=== PATIENT | male | born 1940 | race African-American/Black ===

== ENCOUNTER 2016-09-22 22:50 | Emergency (ER) | payer MEDICARE, BC ==
[~2016-09-22] VITALS: Ht 177.8 cm; Wt 79.4 kg
[~2016-09-22 22:50] MED LIST: AMLO10TA2 PO; AMLO1TAB95 PO; ASPI81TA44 PO; ATOR20TA58 PO; CARV3.122 PO; CARV6.25 PO; CHLO25TA PO; CHOL100013 PO; CITA10TA4 PO; CITA20TA9 PO; COREG PF; DONE10TA7 PO; DUTA1CPM PO; EXEN5PEN2 SQ; KETO1DRO OP; LEVO150T5 PO; MAGN400C PO; METF10002 PO; METF500T PO; METF500T4 PO; MULT1TAB13 PO; OLME40TA PO; OMEG500C PO; Oxybutynin Chloride PO; POTA20TA12 PO; [UNRECOGNIZED DRUG - CODE] TP; [UNRECOGNIZED DRUG - REMARK]
[2016-09-22 23:26] LABS: BASO # 0.1 x10^3/uL (0.0-0.2); BASO % 1 % (0-3); EOS % 10 % (0-3); HEMATOCRIT 34.3 % (39.0-53.0); HEMOGLOBIN 11.1 g/dL (13.0-17.5); LYMPH % 15 % (24-48); MEAN CORPUSCULAR HEMOGLOBIN 29 pg (25-35); MEAN CORPUSCULAR HGB CONC 33 g/dL (31-37); MEAN CORPUSCULAR VOLUME 89 fL (79-100); MONO % 11 % (0-9); NEUT % 63 % (31-73); PLATELET COUNT 169 x10^3/uL (140-400); RED BLOOD COUNT 3.84 x10^6/uL (4.30-5.70); RED CELL DISTRIBUTION WIDTH 14.6 % (11.5-14.5); WHITE BLOOD COUNT 6.7 x10^3/uL (4.0-11.0)
[2016-09-22 23:35] LABS: CALCIUM 8.6 mg/dL (8.5-10.1); GFR 87.9; POTASSIUM 3.7 mmol/L (3.5-5.1)
[2016-09-22 23:40] LABS: ALBUMIN 3.2 g/dL (3.4-5.0); ALBUMIN/GLOBULIN RATIO 1.3 (1.0-1.7); TOTAL BILIRUBIN 0.2 mg/dL (0.2-1.0); TOTAL PROTEIN 5.7 g/dL (6.4-8.2)
--- NOTE | 2016-09-22 23:54 | PHYS DOC ---
Past Medical History Past Medical History: Anxiety, Dementia, Diabetes-Type II, High Cholesterol, Heart Disease, Hypertension, Hypothyroid, Other Additional Past Medical Histor: ENLARGED PROSTATE, ALZHEIMER'S Past Surgical History: Knee Replacement, Other Additional Past Surgical Histo: ESOPHAGEAL DILATION, UNKNOWN OTHER SX HX- PT IS POOR HISTORIAN Alcohol Use: None Drug Use: None Adult General Chief Complaint Chief Complaint: HICCUPS/SINGULTUS HPI HPI Patient is a 76 year old male who presents with hiccups. Patient reports intermittent hiccups x 3 days, most recent onset about 90 minutes prior to arrival. Denies any other associated symptoms. Denies chest pain, shortness of breath, abdominal pain. No previous history of similar symptoms. Seen by his PCP Dr. Hawkins today, given prescription for chlorpromazine which he states helped with his symptoms but then hiccups returned, prompting his visit here. Review of Systems Review of Systems Constitutional: Denies fever or chills Eyes: Denies change in visual acuity HENT: Denies nasal congestion or sore throat Respiratory: Denies cough or shortness of breath Cardiovascular: Denies chest pain or edema GI: Denies abdominal pain, nausea, vomiting, bloody stools or diarrhea. Reports hiccups. : Denies dysuria Musculoskeletal: Denies back pain or joint pain Integument: Denies rash or skin lesions Neurologic: Denies headache, focal weakness or sensory changes Current Medications Current Medications Current Medications Medications (Trade) Dose Ordered Sig/Darrell Start Time Stop Time Status Last Admin Dose Admin Chlorpromazine HCl (Thorazine Im) 25 mg 1X ONCE 09/23/16 00:15 09/23/16 00:16 UNV Metoclopramide HCl (Reglan) 10 mg 1X ONCE 09/23/16 00:15 09/23/16 00:16 UNV Allergies Allergies Allergies Coded Allergies Type Severity Reaction Last Updated Verified No Known Drug Allergies 06/18/14 No Physical Exam Physical Exam Constitutional: Well developed, well nourished, no acute distress, non-toxic appearance. no active hiccups. HENT: Normocephalic, atraumatic, bilateral external ears normal, oropharynx moist, nose normal. Eyes: conjunctiva normal, no discharge. Neck: supple, no stridor. Cardiovascular: RRR, no murmurs, no edema. Lungs & Thorax: LCTAB, no wheezing, no respiratory distress. Abdomen: soft, nontender, nondistended. Skin: Warm, dry, no erythema, no rash. Back: No tenderness. Extremities: No tenderness, no edema. Neurologic: Alert and oriented X 3, no focal deficits noted. Psychologic: Affect normal, judgement normal, mood normal. Current Patient Data Vital Signs Vital Signs Date Time Temp Pulse Resp B/P Pulse Ox O2 Delivery O2 Flow Rate FiO2 09/22/16 23:27 97.9 78 20 150/88 98 Room Air 97.9 Lab Values Laboratory Tests Test 09/22/16 23:17 White Blood Count 6.7x10^3/uL (4.0-11.0) Red Blood Count 3.84x10^6/uL (4.30-5.70) L Hemoglobin 11.1g/dL (13.0-17.5) L Hematocrit 34.3% (39.0-53.0) L Mean Corpuscular Volume 89fL (79-100) Mean Corpuscular Hemoglobin 29pg (25-35) Mean Corpuscular Hemoglobin Concent 33g/dL (31-37) Red Cell Distribution Width 14.6% (11.5-14.5) H Platelet Count 169x10^3/uL (140-400) Neutrophils (%) (Auto) 63% (31-73) Lymphocytes (%) (Auto) 15% (24-48) L Monocytes (%) (Auto) 11% (0-9) H Eosinophils (%) (Auto) 10% (0-3) H Basophils (%) (Auto) 1% (0-3) Neutrophils # (Auto) 4.2x10^3uL (1.8-7.7) Lymphocytes # (Auto) 1.0x10^3/uL (1.0-4.8) Monocytes # (Auto) 0.8x10^3/uL (0.0-1.1) Eosinophils # (Auto) 0.6x10^3/uL (0.0-0.7) Basophils # (Auto) 0.1x10^3/uL (0.0-0.2) Sodium Level 142mmol/L (136-145) Potassium Level 3.7mmol/L (3.5-5.1) Chloride Level 106mmol/L (98-107) Carbon Dioxide Level 28mmol/L (21-32) Anion Gap 8 (6-14) Blood Urea Nitrogen 25mg/dL (8-26) Creatinine 1.0mg/dL (0.7-1.3) Estimated GFR (Cockcroft-Gault) 87.9 BUN/Creatinine Ratio 25 (6-20) H Glucose Level 120mg/dL (70-99) H Calcium Level 8.6mg/dL (8.5-10.1) Total Bilirubin 0.2mg/dL (0.2-1.0) Aspartate Amino Transferase (AST) 16U/L (15-37) Alanine Aminotransferase (ALT) 20U/L (16-63) Alkaline Phosphatase 50U/L (46-116) Troponin I Quantitative < 0.017ng/mL (0.000-0.055) Total Protein 5.7g/dL (6.4-8.2) L Albumin 3.2g/dL (3.4-5.0) L Albumin/Globulin Ratio 1.3 (1.0-1.7) Laboratory Tests 09/22/16 23:17 Laboratory Tests 09/22/16 23:17 EKG EKG interpreted by me: NSR rate 71, no acute ST/T wave changes, normal intervals, no ectopy.[] Radiology/Procedures Radiology/Procedures CXR: interpreted by me: no cardiomegaly, no infiltrate, no pneumothorax, no acute process.[] Course & Med Decision Making Course & Med Decision Making Pertinent Labs and Imaging studies reviewed. (See chart for details) Patient presents with hiccups. No hiccups at time of my exam but they did resume while he was here. He stated he felt fine & they were not distressing to him. Will give IM thorazine & reglan, but anticipate he can be discharged with continued PO thorazine & follow up with his PCP. Will not give prescription for reglan as he is taking celexa & this combination is contraindicated due to increased risk of extrapyramidal symptoms. Workup did not show any more serious concerning etiology of symptoms. Patient comfortable with discharge home. Recommend rest, PO hydration, thorazine PRN, sit upright as this seems to improve symptoms. Come back for severe chest pain or shortness of breath, difficulty breathing or swallowing, any otherwise worsening condition. Discharged home in stable condition. [] Dragon Disclaimer Dragon Disclaimer This electronic medical record was generated, in whole or in part, using a voice recognition dictation system. Departure Departure Impression: Primary Impression: Hiccups Disposition: 01 HOME, SELF-CARE Condition: STABLE Referrals: MARLENE HAWKINS MD (PCP) Patient Instructions: Hiccups Additional Instructions: You were seen in the emergency department today for hiccups. Tests did not show a serious cause of symptoms. Please rest, try sipping cold water if hiccups come back, continue using chlorpromazine as needed. Follow up with Dr. Hawkins in 2-3 days if not improving. Come back for severe chest pain or shortness of breath, if hiccups interfere with breathing or swallowing, or for any otherwise worsening condition. LATRICIA DE MD Sep 22, 2016 23:54
[2016-09-23] MEDS ORDERED: METOCLOPRAMIDE HCL 10 MG/2 ML VIAL. IV ONE (00:30)
[2016-09-23] MEDS ORDERED: CHLORPROMAZINE 25 MG/ML IM ONE (00:30)
[2016-09-23 01:30] VITALS: BP 131/72
--- NOTE | 2016-09-23 06:52 | EKG ---
[facility] [address] [place] [address] Test Date: 2016-09-22 Test Time: 23:23:33 Pat Name: HERRERA AGRAWAL Department: Room: Gender: M [employer]: : 1940 Requested By: LATRICIA DE Order Number: [id number] Reading MD: Gato King Measurements Intervals [place] Rate: 71 P: 52 PA: 152 QRS: 22 QRSD: 98 T: 56 QT: 412 QTc: 448 Interpretive Statements SINUS RHYTHM NON-SPECIFIC ST/T CHANGES Electronically Signed On 09-23-2016 9:33:50 CDT by Gato King
--- NOTE | 2016-09-23 07:55 | RAD ---
Portable chest, 09/23/2016: History: Hiccups Comparison is made to a study from 09/02/2014. The heart size is normal. There is calcific plaquing and tortuosity of the thoracic aorta. A tiny left upper lobe nodule is probably a granuloma. No acute infiltrates are seen. There is no evidence of pleural fluid. Moderate spurring is present in the spine. IMPRESSION: 1. Aortic atherosclerosis and ectasia. 2. Probable left upper lobe granuloma. 3. No acute abnormality is detected.
== END 2016-09-23 01:55 | disposition home or self-care (01) ==
LOC: ER 22:50
DX: R06.6 Hiccough (principal); F41.9 Anxiety disorder, unspecified; E11.9 Type 2 diabetes mellitus without complications; E03.9 Hypothyroidism, unspecified; E78.00 Pure hypercholesterolemia, unspecified; F02.80 Dementia in other diseases classified elsewhere, unspecified severity, without behavioral disturbance, psychotic disturbance, mood disturbance, and anxiety; G30.9 Alzheimer's disease, unspecified; I11.9 Hypertensive heart disease without heart failure; N40.0 Benign prostatic hyperplasia without lower urinary tract symptoms; I51.9 Heart disease, unspecified; Z96.659 Presence of unspecified artificial knee joint
CPT/HCPCS: 36415; 71010; 80053; 84484; 85027; 93005; 96372; 96374; 99285; J2765; J3230

== ENCOUNTER → 2020-05-02 | Outpatient (CLI) | payer MEDICARE ==
[2018-06-24 14:45] VITALS: BP 136/55
[~2020-05-02] MED LIST changes: +ACET325T9 PO; +AMLO-186 PO; +AMLO-187 PO; -AMLO10TA2 PO; -ASPI81TA44 PO; +ASPI81TA59 PO; +CARV3.1210 PO; -CARV3.122 PO; -CHLO25TA PO; +CHLO25TA10 PO; +CIPR250T30 PO; +DUTA1CPM4 PO; +HYDR12.575 PO; +KETO5DRO24 OS; +LEVO125T5 PO; +LEVO175T2 PO; +LOSA100T14 PO; +MAGN400O7 PO; +MELA3TAB4 PO; +MEMA28CA PO; -METF10002 PO; +METF10007 PO; +METF500T16 PO; -METF500T4 PO; +MULT-445 PO; -OLME40TA PO; +OLME40TA12 PO; +OMEG100021 PO; +POTA20TA4 PO; +TAMS0.4C97 PO; +VENL75CA PO
--- NOTE | 2020-05-03 10:33 | RAD ---
DUPLEX LOWER EXTREMITY BILAT Indication: Reason: / Spl. Instructions: / History: Absent bilateral pedal pulses. Cold feet. Comparison: None. Procedure: Real-time grayscale, color flow Doppler, and Doppler spectral waveform analysis of the arterial system of the lower extremity is performed. Findings: Right lower extremity: Biphasic waveform within the right common femoral, deep femoral, superficial femoral and popliteal arteries. Monophasic waveform within the posterior tibial, anterior tibial and dorsalis pedis arteries. No significant velocity elevation. Moderate scattered atheromatous plaque. Left lower extremity: Biphasic waveform within the left common femoral, deep femoral, superficial femoral, popliteal and anterior tibial arteries. Posterior tibial artery not identified. Monophasic waveform within the peroneal and dorsalis pedis arteries. Difficult evaluation of the dorsalis pedis artery due to positioning and structures. Moderate atheromatous plaque. No significant velocity elevation. IMPRESSION: 1. Moderate bilateral atheromatous plaque. 2. Left posterior tibial artery not identified, may relate to occlusion. CT angiogram can further assess as clinically warranted. 3. Monophasic waveform within the bilateral distal lower extremities, may indicate proximal stenosis. Electronically signed by: Renaldo Brewer DO (05/03/2020 10:30 AM) [id number]
== END ==
LOC: US 15:57
PROVIDERS: ATTEND Internal Medicine
DX: I70.203 Unspecified atherosclerosis of native arteries of extremities, bilateral legs (principal); R09.89 Other specified symptoms and signs involving the circulatory and respiratory systems
CPT/HCPCS: 93925